=== PATIENT | female | born 1970 | race Caucasian/White ===

== ENCOUNTER 2023-12-28 13:24 | Emergency (ER) | payer OTHER | END 2023-12-28 15:29 | disposition home or self-care (01) | LOC: VM.ED 13:24 | DX: S52.502A Unspecified fracture of the lower end of left radius, initial encounter for closed fracture (principal); W01.0XXA Fall on same level from slipping, tripping and stumbling without subsequent striking against object, initial encounter | CPT/HCPCS: 29125; 73110-LT; 99283; 99283-25 ==